=== PATIENT | female | born 2000 ===

== ENCOUNTER 2020-10-30 04:29 | Inpatient (IN) | payer MEDICAID ==
[2020-10-30] MEDS ORDERED: ePHEDrine SULFATE 50 MG/1 ML INJ IV PRN ×2 (08:00→13:18)
[2020-10-30] MEDS ORDERED: LIDOCAINE (2%) 20 MG/1 ML VIAL 20 ML MDV INFILTRATI SCH (08:00)
[2020-10-30] MEDS ORDERED: TERBUTALINE 1 MG/1 ML INJ SUB-Q PRN (08:00)
[2020-10-30] MEDS ORDERED: MINERAL OIL 30 ML ORAL LIQD PO PRN (08:00)
[2020-10-30] MEDS ORDERED: AMPICILLIN/NS 2 GM/100 ML 2 GM/100 ML BAG IV SCH (08:00)
[2020-10-30] MEDS: LACTATED RINGERS 1,000 ML IV SCH ×2 (08:11→14:28)
[2020-10-30 08:12] LABS: Hematocrit 31.3 % (30.3-42.9); Hemoglobin 10.2 gm/dl (10.1-14.3); Mean Corpuscular HGB Conc 33 % (30-34); Mean Corpuscular Volume 78 fl (79-97); Platelet Count 210 K/mm3 (140-440); Red Blood Count 4.01 M/mm3 (3.65-5.03); Red Cell Distribution Width 16.5 % (13.2-15.2)
[2020-10-30] MEDS ORDERED: ONDANSETRON 4 MG/2 ML INJ ONE (08:41)
[2020-10-30] MEDS ORDERED: ONDANSETRON 4 MG/2 ML INJ IV PRN ×2 (08:45→13:18)
[2020-10-30] MEDS: BUTORPHANOL 2 MG/1 ML INJ IV PRN ×2 (08:58→12:12)
[2020-10-30] MEDS: OXYTOCIN DRIP 30 UNITS/500 ML BAG IV SCH (09:06)
--- NOTE | 2020-10-30 09:40 | History and Physical Report ---
History of Present Illness Date of examination: 10/30/20 Date of admission: 10/30/20 07:25 Chief complaint: c/o uc since last night History of present illness: 20 y/o presents to [facility] in active labor. Pt states her uc started this am. She denies LOF or VB, and admits to active FM. Pt initiated her pnc at [facility] @ 8.3 wks, and had an uneventful preg. Med/surg/social hx is unremarkable. Family hx of DM. + GBS. Pt was admitted to L&D for delivery. Past History Past Medical History: no pertinent history Past Surgical History: no surgical history Family/Genetic History: diabetes Social history: single, full code - Obstetrical History Expected Date of Delivery: 11/02/20 Actual Gestation: 39 Week(s) 4 Day(s) : 1 Para: 0 Number of Living Children: 0 Medications and Allergies Allergies Allergy/AdvReac Type Severity Reaction Status Date / Time No Known Allergies Allergy Unverified 10/30/20 05:04 Home Medications Medication Instructions Recorded Confirmed Last Taken Type No Known Home Medications [No 10/30/20 10/30/20 Unknown History Reported Home Medications] Active Meds: Active Medications Butorphanol Tartrate (Butorphanol 2 Mg/1 Ml Inj) 2 mg IV Q2H PRN PRN Reason: Pain , Severe (7-10) Last Admin: 10/30/20 08:58 Dose: 2 mg Documented by: Ephedrine Sulfate (Ephedrine Sulfate 50 Mg/1 Ml Inj) 10 mg IV Q2M PRN PRN Reason: Hypotension Lactated Ringer's (Lactated Ringers) 1,000 mls @ 125 mls/hr IV DIRECT BLANCA Last Admin: 10/30/20 08:11 Dose: 125 mls/hr Documented by: Oxytocin/Sodium Chloride (Pitocin/Ns 30 Unit/500ml) 30 units in 500 mls @ 40 mls/hr IV TITR BLANCA; Protocol Last Admin: 10/30/20 09:06 Dose: 2 mls/hr, 2 mls/hr Documented by: Ampicillin Sodium (Ampicillin/Ns 1 Gm/50 Ml) 1 gm in 50 mls @ 100 mls/hr IV Q4H BLANCA; Protocol Ampicillin Sodium (Ampicillin/Ns 2 Gm/100 Ml) 2 gm in 100 mls @ 100 mls/hr IV ONCE BLANCA; Protocol Stop: 10/30/20 13:00 Last Admin: 10/30/20 08:08 Dose: 100 mls/hr Documented by: Lidocaine (Lidocaine (2%) 20 Mg/1 Ml Vial 20 Ml Mdv) 20 ml INFILTRATI ONCE BLANCA Stop: 10/31/20 07:59 Mineral Oil (Mineral Oil 30 Ml Oral Liqd) 30 ml PO QHS PRN PRN Reason: Constipation Terbutaline Sulfate (Terbutaline 1 Mg/1 Ml Inj) 0.25 mg SUB-Q ONCE PRN PRN Reason: Hyperstimulation/Hypertonicity Review of Systems All systems: negative Eyes: deferred Ears, nose, mouth and throat: deferred Genitourinary: normal appearance Rectal Exam: deferred - Vital Signs Vital signs: Vital Signs Pulse BP Pulse Ox 93 H 124/86 99 10/30/20 04:46 10/30/20 04:46 10/30/20 04:46 Temp Pulse Resp BP Pulse Ox 98.8 F 91 H 16 128/68 98 10/30/20 08:22 10/30/20 09:25 10/30/20 08:22 10/30/20 09:25 10/30/20 09:25 - Physical Exam Breasts: Positive: normal Abdomen: Positive: normal appearance, soft, normal bowel sounds Genitourinary (Female): Positive: normal external genitalia, normal perenium Vulva: both: normal Vagina: Positive: normal moisture Uterus: Positive: enlarged, normal contour, other (gravid) Adnexa: both: normal Anus/Rectum: Positive: normal perianal skin Extremities: Positive: normal - Obstetrical FHR: auscultation normal, category 1 Uterine Contraction Monitor Mode: External Cervical Dilatation: 3.5 Cervical Effacement Percentage: 70 station: -2 Uterine Contraction Pattern: Irregular Uterine Tone Measurement Phase: Resting Uterine Contraction Intensity: Mild Results Result Diagrams: 10/30/20 07:36 Abnormal lab results 10/30/20 Range/Units 07:36 MCV 78 L (79-97) fl MCH 25 L (28-32) pg RDW 16.5 H (13.2-15.2) % All other labs normal. Assessment and Plan A: IUP@ 39.4 wks + GBS p: Admit to L&D Continuous monitoring GBS protocol Start Pitocin per protocal Pain med/Epidural prn Anticipate - Patient Problems (1) Supervision of normal IUP (intrauterine ) in primigravida Current Visit: Yes Status: Acute Qualifiers: Trimester: third trimester Qualified Code(s): Z34.03 - Encounter for supervision of normal first , third trimester
[2020-10-30] MEDS: AMPICILLIN/NS 1 GM/50 ML 1 GM/50 ML BAG IV SCH ×2 (12:00→16:15)
[2020-10-30] MEDS ORDERED: NALOXONE 2 MG/2 ML INJ IV PRN (13:18)
[2020-10-30] MEDS ORDERED: NalbUPHINE 10 MG/1 ML INJ IV PRN (13:18)
[2020-10-30] MEDS ORDERED: LACTATED RINGERS 250 ML IV SOLN IV ONE (13:18)
[2020-10-30] MEDS ORDERED: diphenhydrAMINE 50 MG/ML VIAL IV PRN (13:18)
[2020-10-30] MEDS ORDERED: fentaNYL-BUPIV 2 MCG/ML-0.125% 200 MCG/100 ML BAG EPIDURAL SCH (14:00)
--- NOTE | 2020-10-30 14:09 | Anesthesia Consultation ---
Anesthesia Consult and Med Hx Date of service: 10/30/20 - Airway Anesthetic Teeth Evaluation: Good ROM Head & Neck: Adequate Mental/Hyoid Distance: Adequate Mallampati Class: Class II Intubation Access Assessment: Probably Good - Pulmonary Exam CTA: Yes - Cardiac Exam Cardiac Exam: RRR - Pre-Operative Health Status ASA Pre-Surgery Classification: ASA2 Proposed Anesthetic Plan: Epidural - Pulmonary Hx Smoking: No Hx Sleep Apnea: No - Cardiovascular System Hx Hypertension: No Hx Heart Attack/AMI: No Hx Angina: No - Central Nervous System Hx Seizures: No Hx Psychiatric Problems: No - Gastrointestinal Hx Gastroesophageal Reflux Disease: No - Endocrine Hx Renal Disease: No Hx Liver Disease: No Hx Insulin Dependent Diabetes: No Hx Non-Insulin Dependent Diabetes: No - Other Systems Hx Alcohol Use: No
--- NOTE | 2020-10-30 14:11 | Progress Note ---
Labor Epidural - Labor Epidural Start Time: 13:45 Stop Time: 14:01 Performed by:: CINDY OGLESBY (Sheila Monet [facility]) Procedure: Patient is requesting epidural for labor and pain. H&P, labs were reviewed. Patient IDed, H&P reviewed, all questions and concerns were answered, and consent was signed. Timeout was performed at bedside. Patient in sitting position. Sterile prep and drape was performed. 3ml of 1% lidocaine skin wheal at L[3]- L [4]. 18-gauge Nichelle epidural needle was advanced to loss of resistance with air technique 7cm. Negative CSF negative blood. Epidural catheter advanced to [13] centimeters. [negative] Aspiration [negative] test dose. Sterile dressing applied. Patient tolerated procedure.
[2020-10-30] MEDS ORDERED: GENTAMICIN 90 MG in SODIUM CHLORIDE 0.9% 100 ML IV SCH (22:00)
[2020-10-30] MEDS ORDERED: GENTAMICIN/NS 80 MG/100 ML 100 ML IV SCH (22:00)
--- NOTE | 2020-10-30 23:51 | Event Note ---
Date: 10/30/20 SVE 10/100%/0 with molding; OP position. Pt was allowed approx 2 hrs to labor down then pushing began. Pt has been pushing for a little over 2 hours w/o significant change noted. FHT 146 with mod dacia and occ early decel. UC adq with MVUs of 250. Temp 99.5. Pt was allowed to rest, and Dr Merida was called in to evaluate pt's status.
[2020-10-31] MEDS ORDERED: CLINDAMYCIN 600 MG/50 mL 600 MG/50 ML BAG IV SCH
[2020-10-31] MEDS: AMPICILLIN/NS 1 GM/50 ML 1 GM/50 ML BAG IV SCH (00:22)
[2020-10-31] MEDS: LACTATED RINGERS 1,000 ML IV SCH ×3 (00:23→13:56)
[2020-10-31] MEDS ORDERED: miSOPROStol 200 MCG TAB ONE (01:17)
[2020-10-31] MEDS ORDERED: METHYLERGONOVINE MALEATE 0.2 MG/ML VIAL IM ONE (01:18)
[2020-10-31] MEDS ORDERED: LIDOCAINE MPF (2%) 20 MG/1 ML VIAL 5 ML ONE (01:26)
[2020-10-31] MEDS ORDERED: PROMETHAZINE 25 MG RECT SUPP PR PRN (01:57)
[2020-10-31] MEDS ORDERED: MAGNESIUM HYDROXIDE (MOM) ORAL LIQD UDC PO PRN (01:57)
[2020-10-31] MEDS ORDERED: diphenhydrAMINE 25 MG CAP PO PRN ×2 (01:57→09:00)
[2020-10-31] MEDS ORDERED: PROMETHAZINE 25 MG TAB PO PRN (01:57)
[2020-10-31] MEDS ORDERED: LANOLIN/ZINC/DIMETHICONE (LANSINOH) 7 GM TP PRN (01:57)
[2020-10-31] MEDS ORDERED: WITCH HAZEL/ GLYCERIN PAD TP PRN (01:57)
[2020-10-31] MEDS ORDERED: METHYLERGONOVINE MALEATE 0.2 MG/ML VIAL IM PRN (01:57)
[2020-10-31] MEDS ORDERED: miSOPROStol 200 MCG TAB PR PRN (01:57)
[2020-10-31] MEDS ORDERED: ONDANSETRON 4 MG/2 ML INJ IV PRN (01:57)
[2020-10-31] MEDS: BUTORPHANOL 2 MG/1 ML INJ IV PRN (02:00)
[2020-10-31] MEDS ORDERED: SODIUM CHLORIDE 0.9% IV SCH (02:45)
[2020-10-31] MEDS ORDERED: GENTAMICIN IV SCH (02:45)
--- NOTE | 2020-10-31 02:49 | Procedure Note ---
OB Delivery Note - Delivery Date of Delivery: 10/31/20 Surgeon: JOHNATHAN HUNT Estimated blood loss: 500cc - Vaginal Delivery presentation: vertex Delivery position: OP Intrapartum events: febrile- temp >100.3, meconium, prolonged 2nd stage>2.5hr, hemorrhage (500cc), uterine atony Delivery augmentation: pitocin Delivery monitor: external FHT, external uterine, internal uterine Route of delivery: vacuum extraction Delivery placenta: spontaneous Delivery cord: nuchal cord Episiotomy: mediolateral (right mediolateral) Delivery laceration: 2nd degree (extending cephalad another 2cm to mid-vagina.) Delivery repair: chromic Anesthesia: local Delivery comments: CIERA Dominguez called me concerning the need for further evaluation with arrest of 2nd stage of labor. Pt evaluated and station now +1, asynclitic head with caput and perineal swelling. Plan of care discussed with vacuum assisted delivery, risks, benefits and alternatives including delivery. Pt though tired was cooperative and tried once more; pt placed in left lateral position and same was effective bringing baby to +3 station. Right mediolateral episiotomy done for adequate room for head that was almost ; pt still could not push effectively with pitocin at 18. Vacuum placed for distress and maternal exhaustion at +3 station with asynclitic head, single attempt for 5seconds and pressure 500mmHg without pop off. Same removed when head and O-P presentation as fetus rotated slightly. Nuchal cord x1 reduced on the perineum. VAVD done of viable female uncomplicated and NICU present. Cord gas done however nurse placed same on the counter at the station and it was not sent until after 1hr. APGARS 8/9; Pt's epidural now off and not effective. Spontaneous delivery of intact placenta. Bimanual massage done with uterine atony, IV pitocin given, Methergine 0.2mg IM by nurse and cyto caryn 800mcg per rectum placed by CIERA Dominguez. 2nd IV access placed to right hand by charge nurse Chuy and Velasco cath placed to gravity by another circulating nurse. Evaluation of cervix showed no laceration. Episiotomy extended medially 2cm and repair done using 2-0 chromic running locked suture. Rectovag exam done confirmed no extension to anal sphincter. Skin repaired with 2-0 chromic and pain relief with lidocaine 1%. Pt also given IV stadol by nurse. Sponge, lap, needle and instrument counts correct x2. Actual QBL was 495cc per nurse report. Mom and baby stable. Pt temp 100.6 post delivery. Will give amp/gent/clinda for acute endometritis, extensive repair and prolong labor, GBS+ and meconium stained fluid. Pt and family in the room educated on how to take care of the perineal wound and showers only. All questions encouraged and answered. - A at 1 minute: 8 (wt 3209g, meconium stained fluid) at 5 minutes: 9 Infant Gender: Female
[2020-10-31] MEDS: OXYTOCIN DRIP 30 UNITS/500 ML BAG IV SCH (02:55)
[2020-10-31] MEDS: AMPICILLIN/NS 2 GM/100 ML 2 GM/100 ML BAG IV SCH ×2 (03:15→17:59)
[2020-10-31] MEDS: GENTAMICIN 300 MG in SODIUM CHLORIDE 0.9% 100 ML IV SCH (04:01)
[2020-10-31] MEDS: IBUPROFEN 600 MG TAB PO SCH ×2 (04:21→16:12)
--- NOTE | 2020-10-31 08:36 | Progress Note ---
Subjective - Subjective Date of service: 10/31/20 Interval history: pt aaox3 mildly hypotesive and tachycardic +ve PPH with EBL at least 500ml Stat h/h pending 2 units PRBC's ordered stat, will transfuse one unit and repeat H/H as patient is symptomatic Ramirez Forbes MD Objective - Vital Signs Latest vital signs: Vital Signs Temp Pulse Resp BP Pulse Ox 10/31/20 08:30 95 H 98 10/31/20 08:25 103 H 98 10/31/20 08:20 113 H 99 10/31/20 08:19 107 H 105/64 10/31/20 08:15 111 H 98 10/31/20 08:10 87 97 10/31/20 08:05 90 97 10/31/20 08:04 88 113/58 10/31/20 08:00 90 97 10/31/20 07:55 85 96 10/31/20 07:50 91 H 98 10/31/20 07:49 85 110/57 10/31/20 07:45 95 H 98 10/31/20 07:40 87 98 10/31/20 07:35 92 H 98 10/31/20 07:34 88 111/58 10/31/20 07:30 87 97 10/31/20 07:25 93 H 97 10/31/20 07:20 96 H 96 10/31/20 07:19 90 111/57 10/31/20 07:16 98.8 F 14 10/31/20 07:15 93 H 97 10/31/20 07:10 91 H 97 10/31/20 07:05 87 97 10/31/20 07:04 86 114/56 10/31/20 07:00 84 97 10/31/20 06:57 88 116/56 10/31/20 06:55 98 H 97 10/31/20 06:50 92 H 134/57 97 10/31/20 06:45 90 97 10/31/20 06:40 92 H 98 10/31/20 06:35 99 H 98 10/31/20 06:34 85 120/57 10/31/20 06:30 97 H 98 10/31/20 06:29 99.7 F H 10/31/20 06:25 90 98 10/31/20 06:20 107 H 127/58 97 10/31/20 06:15 92 H 97 06 06:10 87 98 06 06:05 90 98 06 06:04 98 H 85/50 06 06:00 92 H 97 06 05:55 90 97 10/31/20 05:50 92 H 97 10/31/20 05:49 86 114/56 10/31/20 05:45 99.3 F 91 H 97 10/31/20 05:40 91 H 97 06 05:35 92 H 96 10/31/20 05:34 97 H 112/52 10/31/20 05:30 91 H 97 10/31/20 05:25 88 97 10/31/20 05:20 89 97 10/31/20 05:19 85 121/59 10/31/20 05:15 88 96 10/31/20 05:10 84 97 10/31/20 05:05 93 H 97 10/31/20 05:04 85 114/59 10/31/20 05:00 87 97 10/31/20 04:55 82 97 10/31/20 04:50 84 96 10/31/20 04:49 83 120/56 10/31/20 04:45 80 97 10/31/20 04:40 85 97 10/31/20 04:35 83 97 10/31/20 04:34 79 117/56 10/31/20 04:30 79 98 10/31/20 04:25 88 97 10/31/20 04:20 83 98 10/31/20 04:19 84 129/61 10/31/20 04:15 87 98 06 04:10 94 H 98 10/31/20 04:05 93 H 98 10/31/20 04:04 87 128/61 06 04:00 100.3 F H 96 H 99 10/31/20 03:55 98 H 99 06 03:50 107 H 122/47 98 0604 03:45 88 98 10/31/20 03:40 93 H 99 10/31/20 03:35 94 H 134/62 98 0604 03:30 101 H 99 06 03:25 108 H 99 06 03:20 96 H 147/67 99 10/31/20 03:15 84 99 06 03:10 85 99 10/31/20 03:09 88 126/67 10/31/20 03:05 83 98 10/31/20 03:00 87 99 10/31/20 02:59 86 131/63 10/31/20 02:55 88 99 10/31/20 02:54 87 130/65 10/31/20 02:50 90 99 10/31/20 02:49 89 129/63 10/31/20 02:45 93 H 99 10/31/20 02:44 93 H 132/68 10/31/20 02:40 84 100 10/31/20 02:39 88 132/67 10/31/20 02:35 86 100 10/31/20 02:34 83 127/65 10/31/20 02:30 100.6 F H 82 100 10/31/20 02:29 92 H 122/60 10/31/20 02:25 86 100 10/31/20 02:24 77 122/58 10/31/20 02:20 82 100 10/31/20 02:19 85 120/60 10/31/20 02:15 95 H 100 10/31/20 02:14 97 H 119/56 10/31/20 02:10 95 H 100 10/31/20 02:09 87 127/60 10/31/20 02:05 94 H 100 10/31/20 02:04 77 118/57 10/31/20 02:00 84 100 10/31/20 01:59 104 H 124/66 10/31/20 01:55 80 100 10/31/20 01:54 78 119/58 10/31/20 01:50 89 100 10/31/20 01:49 87 123/58 /09/17 01:45 94 H 100 10/31/20 01:44 94 H 123/57 10/31/20 01:40 82 100 06 01:39 88 120/59 0604 01:35 97 H 100 10/31/20 01:34 90 121/61 0604 01:30 91 H 100 10/31/20 01:29 92 H 122/60 10/31/20 01:25 91 H 124/59 100 10/31/20 01:24 102 H 77 L 10/31/20 01:22 97 H 133/60 10/31/20 01:20 113 H 100 10/31/20 01:16 105 H 71 L 10/31/20 01:15 90 100 10/31/20 01:10 100 H 99 10/31/20 01:05 94 H 100 10/31/20 01:00 94 H 100 10/31/20 00:55 85 135/72 100 10/31/20 00:52 91 H 81 L 10/31/20 00:50 90 100 10/31/20 00:45 79 98 10/31/20 00:40 82 121/72 100 10/31/20 00:35 88 94 10/31/20 00:34 113 H 92 10/31/20 00:30 99.4 F 99 H 98 10/31/20 00:28 74 78 L 10/31/20 00:26 82 138/72 10/31/20 00:25 103 H 99 10/31/20 00:21 94 H 90 10/31/20 00:20 105 H 88 10/31/20 00:15 74 99 10/31/20 00:11 109 H 150/108 10/31/20 00:10 58 L 99 10/31/20 00:05 79 99 10/31/20 00:03 58 L 91 10/31/20 00:00 86 99 10/30/20 23:58 62 92 10/30/20 23:55 108 H 100 10/30/20 23:50 112 H 100 10/30/20 23:45 99 H 100 10/30/20 23:40 103 H 100 10/30/20 23:35 88 97 10/30/20 23:34 80 93 10/30/20 23:30 113 H 99 10/30/20 23:25 90 127/74 100 10/30/20 23:20 81 100 10/30/20 23:14 104 H 100 10/30/20 23:11 93 H 134/86 65 L 10/30/20 23:09 41 L 93 10/30/20 23:05 32 L 83 L 10/30/20 23:04 78 100 10/30/20 22:59 89 96 10/30/20 22:58 58 L 74 L 10/30/20 22:56 87 138/72 10/30/20 22:54 90 100 10/30/20 22:49 106 H 92 10/30/20 22:48 97 H 100 10/30/20 22:43 99 H 100 10/30/20 22:41 96 H 120/68 10/30/20 22:38 91 H 99 10/30/20 22:33 95 H 100 10/30/20 22:31 104 H 94 10/30/20 22:28 105 H 100 10/30/20 22:26 100 H 136/76 10/30/20 22:23 111 H 96 10/30/20 22:17 112 H 100 10/30/20 22:13 91 H 77 L 10/30/20 22:12 96 H 100 10/30/20 22:07 104 H 100 10/30/20 22:02 139 H 100 10/30/20 21:57 110 H 99 10/30/20 21:55 104 H 133/71 10/30/20 21:52 101 H 100 10/30/20 21:47 106 H 98 10/30/20 21:42 127 H 99 10/30/20 21:40 108 H 132/72 10/30/20 21:37 103 H 98 10/30/20 21:33 95 H 98 10/30/20 21:27 109 H 98 10/30/20 21:25 94 H 121/58 10/30/20 21:23 97 H 99 10/30/20 21:17 109 H 97 10/30/20 21:12 105 H 97 10/30/20 21:11 106 H 130/70 10/30/20 21:08 110 H 98 10/30/20 21:02 166 H 82 L 10/30/20 20:56 110 H 133/75 99 10/30/20 20:51 113 H 98 10/30/20 20:47 104 H 97 10/30/20 20:42 99 H 96 10/30/20 20:41 101 H 125/75 10/30/20 20:37 96 H 96 10/30/20 20:31 108 H 96 10/30/20 20:27 101 H 97 10/30/20 20:25 98 H 128/74 10/30/20 20:21 102 H 97 10/30/20 20:17 100 H 97 10/30/20 20:12 101 H 98 06 20:10 101 H 124/76 10/30/20 20:06 97 H 99 06 20:02 96 H 98 10/30/20 19:57 111 H 99 06 19:56 100 H 132/77 10/30/20 19:52 111 H 98 06 19:47 104 H 100 10/30/20 19:42 98 H 98 10/30/20 19:41 96 H 116/63 10/30/20 19:37 97 H 98 10/30/20 19:32 103 H 100 10/30/20 19:27 100 H 121/67 97 10/30/20 19:22 101 H 98 10/30/20 19:17 99 H 99 10/30/20 19:12 96 H 99 10/30/20 19:11 96 H 128/66 10/30/20 19:07 102 H 99 10/30/20 19:02 102 H 98 10/30/20 18:57 93 H 99 10/30/20 18:56 96 H 127/70 10/30/20 18:52 104 H 100 10/30/20 18:47 109 H 100 10/30/20 18:44 109 H 92 10/30/20 18:42 98.1 F 102 H 119/64 98 10/30/20 18:37 118 H 98 10/30/20 18:32 99 H 98 10/30/20 18:27 98 H 143/67 98 10/30/20 18:22 101 H 98 10/30/20 18:17 112 H 88 10/30/20 18:11 104 H 104/52 98 03 18:07 112 H 99 10/30/20 18:02 106 H 98 06 17:57 109 H 98 10/30/20 17:56 103 H 102/50 10/30/20 17:52 104 H 96 10/30/20 17:47 105 H 97 10/30/20 17:42 101 H 99/53 96 10/30/20 17:37 97 H 97 10/30/20 17:32 95 H 97 10/30/20 17:31 98.1 F 18 98 10/30/20 17:27 95 H 119/70 96 10/30/20 17:22 87 100 10/30/20 17:17 104 H 100 10/30/20 17:15 94 H 89 06 17:12 109 H 98 10/30/20 17:11 111 H 108/58 10/30/20 17:07 124 H 98 10/30/20 17:02 106 H 97 10/30/20 16:57 111 H 97 10/30/20 16:56 101 H 92/52 10/30/20 16:52 102 H 97 10/30/20 16:47 104 H 97 10/30/20 16:42 94 H 98 10/30/20 16:41 102 H 106/52 10/30/20 16:37 104 H 98 10/30/20 16:32 99 H 97 10/30/20 16:27 94 H 98 10/30/20 16:26 95 H 113/63 10/30/20 16:22 96 H 98 10/30/20 16:17 104 H 97 10/30/20 16:12 97 H 99 10/30/20 16:11 90 112/66 10/30/20 16:07 81 97 10/30/20 16:02 91 H 97 10/30/20 15:57 80 98 10/30/20 15:55 96 H 109/56 10/30/20 15:52 96 H 97 10/30/20 15:47 93 H 98 10/30/20 15:42 84 98 10/30/20 15:40 85 114/60 10/30/20 15:37 88 98 10/30/20 15:31 94 H 99 10/30/20 15:27 106 H 98 10/30/20 15:25 88 127/66 10/30/20 15:22 92 H 98 10/30/20 15:17 97 H 97 10/30/20 15:11 86 99 10/30/20 15:10 89 126/60 10/30/20 15:07 93 H 100 10/30/20 15:02 94 H 97 10/30/20 15:00 89 92 10/30/20 14:57 89 99 10/30/20 14:56 82 130/69 10/30/20 14:54 119 H 94 10/30/20 14:52 100 H 99 10/30/20 14:47 95 H 98 10/30/20 14:42 93 H 99 10/30/20 14:41 105 H 133/94 10/30/20 14:37 91 H 98 10/30/20 14:33 95 H 93 10/30/20 14:32 82 97 10/30/20 14:27 91 H 98 10/30/20 14:25 93 H 125/65 10/30/20 14:23 82 129/68 10/30/20 14:22 86 99 10/30/20 14:21 90 128/71 10/30/20 14:19 88 132/74 10/30/20 14:17 90 129/79 97 10/30/20 14:15 90 126/68 10/30/20 14:13 96 H 116/73 10/30/20 14:12 79 98 10/30/20 14:11 90 138/82 10/30/20 14:09 92 H 125/59 10/30/20 14:07 93 H 138/72 99 10/30/20 14:05 100 H 151/74 10/30/20 14:02 91 H 140/75 99 10/30/20 14:00 96 H 137/76 10/30/20 13:58 100 H 140/77 10/30/20 13:57 92 H 99 10/30/20 13:56 96 H 143/75 10/30/20 13:54 83 129/67 10/30/20 13:52 94 H 136/74 98 10/30/20 13:50 96 H 146/74 10/30/20 13:48 95 H 139/68 10/30/20 13:47 99 H 98 10/30/20 13:46 103 H 144/72 10/30/20 13:44 100 H 142/67 10/30/20 13:42 120 H 99 10/30/20 13:37 108 H 153/59 99 10/30/20 13:32 86 142/83 98 10/30/20 13:28 90 140/88 10/30/20 13:27 88 99 10/30/20 13:22 100 H 154/81 98 10/30/20 13:17 76 126/70 93 10/30/20 13:12 107 H 139/103 99 10/30/20 13:07 86 133/77 97 10/30/20 13:02 96 H 147/77 97 10/30/20 12:58 93 H 139/86 10/30/20 12:57 114 H 100 10/30/20 12:53 95 H 150/84 10/30/20 12:52 110 H 98 10/30/20 12:49 81 92 10/30/20 12:47 82 127/72 97 10/30/20 12:42 88 131/74 97 10/30/20 12:38 80 133/79 93 10/30/20 12:37 114 H 98 10/30/20 12:32 83 135/77 97 10/30/20 12:29 89 93 10/30/20 12:27 90 131/76 97 10/30/20 12:23 93 H 91 10/30/20 12:22 96 H 131/79 99 10/30/20 12:18 90 92 10/30/20 12:17 90 100 10/30/20 12:12 95 H 100 10/30/20 12:07 94 H 99 10/30/20 12:02 86 98 10/30/20 11:57 88 100 10/30/20 11:56 83 124/73 10/30/20 11:55 97.6 F 94 H 18 123/77 99 10/30/20 11:52 85 99 10/30/20 11:47 87 99 10/30/20 11:42 96 H 99 10/30/20 11:37 106 H 99 10/30/20 11:33 73 L 10/30/20 11:25 54 L 80 L 10/30/20 11:20 87 98 10/30/20 11:15 78 99 10/30/20 11:10 84 99 10/30/20 11:05 85 100 10/30/20 11:00 84 100 10/30/20 10:58 82 119/72 10/30/20 10:55 94 H 100 10/30/20 10:50 79 99 10/30/20 10:45 88 99 10/30/20 10:40 79 99 10/30/20 10:35 107 H 97 10/30/20 10:30 91 H 98 10/30/20 10:25 89 126/82 97 10/30/20 10:24 96 H 123/74 10/30/20 10:20 92 H 97 10/30/20 10:19 92 H 123/74 10/30/20 10:15 93 H 123/79 99 10/30/20 10:10 92 H 98 10/30/20 10:09 90 125/75 10/30/20 10:05 86 125/68 97 10/30/20 10:00 91 H 98 10/30/20 09:59 86 123/64 10/30/20 09:55 89 98 10/30/20 09:54 88 122/63 10/30/20 09:50 94 H 98 10/30/20 09:49 83 121/57 10/30/20 09:45 87 97 10/30/20 09:44 86 120/60 10/30/20 09:40 88 98 10/30/20 09:39 85 123/63 10/30/20 09:36 87 122/61 10/30/20 09:35 98 H 97 10/30/20 09:30 85 97 10/30/20 09:29 78 119/64 10/30/20 09:25 91 H 128/68 98 10/30/20 09:20 93 H 98 10/30/20 09:15 91 H 97 10/30/20 09:10 99 H 98 10/30/20 09:05 93 H 98 10/30/20 09:00 94 H 100 10/30/20 08:55 99 H 99 10/30/20 08:50 99 H 100 10/30/20 08:45 97 H 99 10/30/20 08:40 96 H 99 Intake and Output 10/30/20 10/31/20 10/31/20 23:59 07:59 15:59 Intake Total 1050 84.4 Output Total 750 Balance 1050 -665.6 Intake: IV 1050 84.4 AMPICILLIN/NS 1 GM/50 ML 50 1 gm In 50 ml @ 100 mls/ hr IV Q4H BLANCA Rx#: [id number] Lactated Ringers 1,000 ml 1000 @ 125 mls/hr IV DIRECT BLANCA Rx#:[id number] PITOCin/NS 30 UNIT/500ML 84.4 30 units In 500 ml @ 40 mls/hr IV TITR BLANCA Rx#: [id number] Output: Urine 750 Indwelling 750 Other: Estimated Blood Loss 495 - Labs Labs: Abnormal lab results 10/30/20 10/31/20 Range/Units 07:36 02:41 ABG pH 7.179 L (7.320-7.450) POC ABG pO2 24.4 L (83-108) mmHg ABG Oxyhemoglobin 47.9 L (94-98) ABG Potassium 5.0 H (3.40-4.50) mmol/L Crossmatch See Detail
[2020-10-31 08:38] LABS: Hemoglobin 8.3 gm/dl (10.1-14.3)
[2020-10-31] MEDS ORDERED: SODIUM CHLORIDE 0.9% 500 ML 500 ML IV SCH (09:00)
--- NOTE | 2020-10-31 09:00 | Post Anesthesia Evaluation ---
- Post Anesthesia Evaluation Patient Participated: Yes Airway Patent: Yes Stable Respiratory Function: Yes Nausea/Vomiting: No Temp > 96.8F: Yes Pain Manageable: Yes Adequeate Hydration: Yes Anesthesia Complications: No Block Receding Appropriately: Yes Patient on Ventilator: No
[2020-10-31] MEDS: ACETAMINOPHEN 325 MG TAB PO PRN ×2 (09:03→17:35)
[2020-10-31] MEDS: FERROUS SULFATE 325 MG TAB PO SCH ×2 (15:31→22:27)
[2020-10-31 20:22] LABS: Hematocrit 30.2 % (30.3-42.9); Hemoglobin 9.8 gm/dl (10.1-14.3)
[2020-11-01] MEDS: IBUPROFEN 600 MG TAB PO SCH ×4 (01:29→22:27)
[2020-11-01] MEDS: AMPICILLIN/NS 2 GM/100 ML 2 GM/100 ML BAG IV SCH ×4 (01:30→22:28)
[2020-11-01] MEDS: LACTATED RINGERS 1,000 ML IV SCH ×2 (03:03→22:28)
[2020-11-01] MEDS: GENTAMICIN 300 MG in SODIUM CHLORIDE 0.9% 100 ML IV SCH (04:07)
--- NOTE | 2020-11-01 06:43 | Progress Note ---
Assessment and Plan A: day 1 S/P VAVD. Anemia. P: Supplement with iron. Patient to ambulate. Anticipate discharge home tomorrow if patient continues to do well. Subjective - Subjective Date of service: 11/01/20 Principal diagnosis: day 1 S/P VAVD Patient reports: appetite normal, voiding normally, pain well controlled, flatus, ambulating normally, no dizzy ambulation, no nauseated [place]: doing well Objective - Vital Signs Latest vital signs: Vital Signs Temp Pulse Resp BP Pulse Ox 11/01/20 02:05 98.0 F 82 14 117/78 97 10/31/20 20:51 99.3 F 91 H 18 115/59 97 10/31/20 16:14 96 H 17 113/72 98 10/31/20 15:27 93 H 16 119/76 98 10/31/20 14:55 98.2 F 95 H 16 116/66 97 10/31/20 14:00 98.3 F 103 H 17 111/57 96 10/31/20 13:50 103 H 16 112/60 96 10/31/20 13:42 102 H 16 110/64 96 10/31/20 10:13 98.7 F 16 110/55 10/31/20 09:57 94 H 110/59 10/31/20 09:55 91 H 98 10/31/20 09:53 88 112/58 10/31/20 09:50 88 98 10/31/20 09:48 86 107/58 10/31/20 09:45 85 98 10/31/20 09:43 83 104/55 10/31/20 09:40 83 99 10/31/20 09:38 83 106/58 10/31/20 09:35 87 97 10/31/20 09:32 78 109/55 10/31/20 09:30 90 98 10/31/20 09:28 93 H 112/57 10/31/20 09:26 92 H 112/57 10/31/20 09:25 94 H 97 10/31/20 09:22 94 H 121/56 10/31/20 09:21 96 H 122/58 10/31/20 09:20 97 H 98 10/31/20 09:15 106 H 96 10/31/20 09:10 94 H 97 10/31/20 09:05 110 H 98 10/31/20 09:04 96 H 105/56 10/31/20 09:00 96 H 98 10/31/20 08:55 95 H 98 10/31/20 08:50 99 H 98 10/31/20 08:49 92 H 107/57 10/31/20 08:45 98 H 98 10/31/20 08:40 99 H 98 10/31/20 08:35 95 H 98 10/31/20 08:34 92 H 113/60 10/31/20 08:30 95 H 98 10/31/20 08:25 103 H 98 10/31/20 08:20 113 H 99 10/31/20 08:19 107 H 105/64 10/31/20 08:15 111 H 98 10/31/20 08:10 87 97 10/31/20 08:05 90 97 10/31/20 08:04 88 113/58 10/31/20 08:00 90 97 10/31/20 07:55 85 96 10/31/20 07:50 91 H 98 10/31/20 07:49 85 110/57 10/31/20 07:45 95 H 98 10/31/20 07:40 87 98 10/31/20 07:35 92 H 98 10/31/20 07:34 88 111/58 10/31/20 07:30 87 97 10/31/20 07:25 93 H 97 10/31/20 07:20 96 H 96 10/31/20 07:19 90 111/57 10/31/20 07:16 98.8 F 14 10/31/20 07:15 93 H 97 10/31/20 07:10 91 H 97 10/31/20 07:05 87 97 10/31/20 07:04 86 114/56 10/31/20 07:00 84 97 10/31/20 06:57 88 116/56 10/31/20 06:55 98 H 97 10/31/20 06:50 92 H 134/57 97 10/31/20 06:45 90 97 Intake and Output 10/31/20 10/31/20 11/01/20 15:59 23:59 07:59 Intake Total 6730.539 6987 240 Output Total 260 800 500 Balance 1354.583 660 -260 Intake: IV 7866.030 9190 AMPICILLIN/NS 2 GM/100 ML 100 2 gm In 100 ml @ 100 mls /hr IV Q6H [facility] Rx#: [id number] CLEOCIN 900 MG/50 mL 900 50 mg In 50 ml @ 100 mls/hr IV Q8H [facility] Rx#:[id number] Lactated Ringers 1,000 ml 1415.132 8138 @ 125 mls/hr IV DIRECT [facility] Rx#:[id number] Intake, Free Water 360 240 Blood Product 250 Leukoreduced Red Blood 250 Cells Unit [id number] Output: Urine 260 800 500 Indwelling 60 Indwelling Catheter 200 800 500 Other: Total, Output Amount 200 800 500 # Voids Indwelling Catheter 1 - Exam Cardiovascular: Present: Regular rate Lungs: Present: Clear to auscultation Abdomen: Present: normal appearance, soft, normal bowel sounds. Absent: distention, tenderness, guarding, rigidity Uterus: Present: normal, firm, fundal height below umbilicus. Absent: bogginess, tenderness Extremities: Absent: tenderness - Labs Labs: Abnormal lab results 10/30/20 10/31/20 10/31/20 Range/Units 07:36 08:27 19:59 Hgb 8.3 L 9.8 L (10.1-14.3) gm/dl Hct 26.0 L 30.2 L (30.3-42.9) % Crossmatch See Detail
[2020-11-01] MEDS: FERROUS SULFATE 325 MG TAB PO SCH ×2 (09:32→22:27)
[2020-11-02] MEDS: AMPICILLIN/NS 2 GM/100 ML 2 GM/100 ML BAG IV SCH (03:56)
--- NOTE | 2020-11-02 09:28 | Progress Note ---
Assessment and Plan day 2 S/P VAVD. Anemia. P: Discharge patient home today. Discussed with patient discharge instructions and warning signs. Advised patient to take vitamins and iron supplements at home. Advised patient to avoid lifting, housework, intercourse, tub baths (patient may take showers). Advised patient to follow up at [facility] in 6 weeks for exam. Patient voiced understanding of all instructions. Subjective - Subjective Date of service: 11/02/20 Principal diagnosis: day 2 S/P VAVD Interval history: Doing well. Desires discharge home. Patient reports: appetite normal, voiding normally, pain well controlled, flatus, ambulating normally, no dizzy ambulation, no nauseated [place]: doing well Objective - Vital Signs Latest vital signs: Vital Signs Temp Pulse Resp BP BP Pulse Ox 11/02/20 08:00 97.6 F 73 20 111/72 99 11/01/20 23:22 98.3 F 90 18 120/72 99 11/01/20 16:50 98.2 F 74 18 110/64 Intake and Output 11/01/20 11/02/20 11/02/20 23:59 07:59 15:59 Intake Total 580 Output Total 300 Balance 280 Intake: IV 100 AMPICILLIN/NS 2 GM/100 ML 100 2 gm In 100 ml @ 100 mls /hr IV Q6H [facility] Rx#: [id number] Oral 240 Intake, Free Water 240 Output: Urine 300 Void 300 Other: Total, Intake Amount 120 Total, Output Amount 300 # Voids Void 1 - Exam Cardiovascular: Present: Regular rate Lungs: Present: Clear to auscultation Abdomen: Present: normal appearance, soft, normal bowel sounds. Absent: distention, tenderness, guarding, rigidity Uterus: Present: normal, firm, fundal height below umbilicus. Absent: bogginess, tenderness Extremities: Present: edema (mild bilateral pedal edema). Absent: tenderness
--- NOTE | 2020-11-02 09:32 | Discharge Summary ---
Providers - Providers Date of Admission: 10/30/20 07:25 Date of discharge: 11/02/20 Attending physician: GILBERTO RODRIGUEZ Primary care physician: GILBERTO RODRIGUEZ Hospitalization Reason for admission: active labor Delivery: Episiotomy: mediolateral Laceration: 2nd degree Other procedures: none complications: none Discharge diagnosis: IUP at term delivered baby: female Pertinent studies: Labs Hospital course: Stable hospital course. Condition at discharge: Good Disposition: DC-01 TO HOME OR SELFCARE - Discharge Diagnoses (1) Term delivered Status: Acute (2) Anemia Status: Acute Plan - Provider Discharge Summary Activity: routine, no sex for 6 weeks, no heavy lifting 4 weeks, no strenuous exercise Diet: routine Instructions: routine Additional instructions: Continue taking your vitamin and iron supplements at home. Call your doctor immediately for: * Fever > 100.5 * Heavy vaginal bleeding ( >1 pad per hour) * Severe persistent headache * Shortness of breath * Reddened, hot, painful area to leg or breast * Drainage or odor from incision. * Keep incision clean and dry at all times and follow doctor's instructions regarding bathing/showering - Follow up plan Follow up: GILBERTO RODRIGUEZ MD [Primary Care Provider] - 6 Weeks
[2020-11-02] MEDS: FERROUS SULFATE 325 MG TAB PO SCH (10:30)
[2020-11-02] MEDS: IBUPROFEN 600 MG TAB PO SCH (12:48)
[2020-11-02 17:15] VITALS: BP 133/82
== END 2020-11-02 14:25 | disposition home or self-care (01) | DRG 806 ==
LOC: TRG 04:29 → APU 04:31 → LD 07:25 → TRG 08:05 → OB 10-31 10:20
PROVIDERS: ADMIT Obstetrics & Gynecology; ATTEND Obstetrics & Gynecology
PROC: 10D07Z6 Extraction of Products of Conception, Vacuum, Via Natural or Artificial Opening (ICD-10-PCS; principal; 2020-10-31)
PROC: 0KQM0ZZ Repair Perineum Muscle, Open Approach (ICD-10-PCS; 2020-10-31)
PROC: 3E0R3BZ Introduction of Anesthetic Agent into Spinal Canal, Percutaneous Approach (ICD-10-PCS; 2020-10-31)
PROC: 00HU33Z Insertion of Infusion Device into Spinal Canal, Percutaneous Approach (ICD-10-PCS; 2020-10-31)
PROC: 30233N1 Transfusion of Nonautologous Red Blood Cells into Peripheral Vein, Percutaneous Approach (ICD-10-PCS; 2020-10-31)
PROC: 4A033R1 Measurement of Arterial Saturation, Peripheral, Percutaneous Approach (ICD-10-PCS; 2020-10-31)
DX: O77.0 Labor and delivery complicated by meconium in amniotic fluid (principal); O72.1 Other immediate postpartum hemorrhage; Z37.0 Single live birth; O70.1 Second degree perineal laceration during delivery; O99.03 Anemia complicating the puerperium; O63.1 Prolonged second stage (of labor); Z3A.39 39 weeks gestation of pregnancy; O66.5 Attempted application of vacuum extractor and forceps; Z83.3 Family history of diabetes mellitus; Z20.822 Contact with and (suspected) exposure to COVID-19
CPT/HCPCS: 36415; 82805; 85014; 85018; 85027; 86592; 86850; 86900; 86901; 86920; G0378; A6250; J0290; J0595; J1580; J2210; J2405; J2590; J7120; P9016; U0003